=== PATIENT | female | born 1945 ===

== ENCOUNTER 2018-09-07 05:45 | Day surgery (SDC) | payer OTHER ==
[~2018-09-07 05:45] MED LIST: ALTACE1.25 MG PO; BUSPIRONE HCL5 MG PO; ZOCOR20 MG PO; [UNRECOGNIZED DRUG - OTHER] PO
== END 2018-09-07 14:50 | disposition home or self-care (01) ==
LOC: CIR.AMB 05:45
DX: N89.1 Moderate vaginal dysplasia (principal)